=== PATIENT | male | born 1955 | race Caucasian/White ===

== ENCOUNTER 2024-03-14 18:11 | Emergency (ER) | payer SELFPAY ==
[2024-03-14 18:22] VITALS: BP 117/75; PULSE 72; RESP 18; TEMP 98; BMI 19.3
[2024-03-14] MEDS ORDERED: ACETAMINOPHEN 325 MG TABLET (FP) ONE (20:34)
[2024-03-14] MEDS ORDERED: LIDOCAINE 5% TOPICAL PATCH ONE (20:34)
[2024-03-14] MEDS: LIDOCAINE 4% PATCH TP ONE (20:43)
[2024-03-14] MEDS: ACETAMINOPHEN 500 MG TABLET (FP) PO ONE (20:43)
[2024-03-14] MEDS ORDERED: IBUPROFEN 400 MG TABLET (FP) PO ONE (21:16)
[2024-03-14 21:17] LABS: PH,URINE 6.5 (5.0-8.0); URINE APPEARANCE CLEAR; URINE BILIRUBIN NEGATIVE (NEGATIVE); URINE COLOR YELLOW; URINE GLUCOSE (UA) NEGATIVE (NEGATIVE); URINE KETONE NEGATIVE (NEGATIVE); URINE LEUK ESTERASE NEGATIVE (NEGATIVE); URINE NITRITE NEGATIVE (NEGATIVE); URINE PROTEIN NEGATIVE (NEGATIVE); URINE UROBILINOGEN 0.2 mg/dL (0.2-1.0)
[2024-03-14] MEDS: IBUPROFEN 400 MG TABLET (FP) PO ONE (21:22)
[2024-03-15] MEDS ORDERED: LIDOCAINE PATCH REMOVAL MC SCH (08:00)
== END 2024-03-15 00:04 | disposition home or self-care (01) ==
LOC: JER 18:11
DX: M54.41 Lumbago with sciatica, right side (principal); M54.42 Lumbago with sciatica, left side; G89.29 Other chronic pain; R39.15 Urgency of urination
CPT/HCPCS: 72131-TC; 81003; 87086; 99284-25

== ENCOUNTER 2024-03-26 11:11 | Emergency (ER) | payer SELFPAY ==
[2024-03-26 11:28] VITALS: BMI 25.7
[2024-03-26 12:13] LABS: BASO % 0.6 % (0-2.0); EOS % 3.3 % (0-4.5); HEMATOCRIT 41.9 % (35.4-49); HEMOGLOBIN 14.1 GM/dL (11.7-16.9); LYMPH % 17.6 % (8-40); MCHC 33.6 g/dl (32.0-35.9); MEAN CELL VOLUME 92.2 fl (80-96); MEAN PLT VOLUME 7.7 fl (7.5-11.1); NEUT % 68.5 % (42.8-82.8); PLATELET COUNT 279 10^3/uL (134-434); RBC 4.54 M/mm3 (4.00-5.60); RDW 13.9 % (11.9-15.9); WHITE BLOOD COUNT 7.9 K/mm3 (4.0-10.0)
[2024-03-26 12:16] LABS: EPI CELLS 4 /uL (0-25.1); HYALINE CASTS 1 /uL (0-3.1); PH,URINE 5.5 (5.0-8.0); URINE APPEARANCE CLEAR; URINE BACTERIA 42 /uL (0-1359); URINE BILIRUBIN NEGATIVE (NEGATIVE); URINE COLOR DK YELLOW; URINE GLUCOSE (UA) NEGATIVE (NEGATIVE); URINE KETONE TRACE (NEGATIVE); URINE LEUK ESTERASE NEGATIVE (NEGATIVE); URINE NITRITE NEGATIVE (NEGATIVE); URINE PROTEIN NEGATIVE (NEGATIVE); URINE RBC 68 /uL (0-23.9); URINE WBC 11 /uL (0-25.8)
[2024-03-26 12:20] LABS: INR 0.96 (0.83-1.09)
[2024-03-26 12:23] LABS: ACTIVATED PTT 18.2 SECONDS (25.2-36.5)
[2024-03-26 12:45] LABS: POTASSIUM 4.7 mmol/L (3.5-5.1)
[2024-03-26 12:48] LABS: ALBUMIN 3.3 g/dl (3.4-5.0)
[2024-03-26 12:49] LABS: BLOOD UREA NITROGEN 15.3 mg/dL (7-18)
[2024-03-26 12:51] LABS: CREATININE 0.8 mg/dL (0.55-1.3)
[2024-03-26 12:52] LABS: TOT PROT 6.8 g/dl (6.4-8.2)
[2024-03-26 12:54] LABS: BILIRUBIN,TOTAL 0.5 mg/dL (0.2-1)
[2024-03-26 13:42] VITALS: RESP 18
[2024-03-26 14:02] LABS: HIV INTERPRETATION NEGATIVE (NEGATIVE)
[2024-03-26] MEDS: SODIUM CHLORIDE 1,000 ML IV SCH (14:42)
[2024-03-26 19:07] VITALS: BP 113/74; PULSE 62; TEMP 98.3
== END 2024-03-26 19:28 | disposition short-term general hospital (02) ==
LOC: JER 11:11
DX: R53.1 Weakness (principal); G93.89 Other specified disorders of brain; R51.9 Headache, unspecified; Z20.822 Contact with and (suspected) exposure to COVID-19
CPT/HCPCS: 0241U-QW; 36415; 70450-TC; 80053; 80061; 81003; 82550; 83036; 84484; 85025; 85610; 85730; 86803; 86850; 86900; 86901; 87389; 93005; 93010; 99291